=== PATIENT | female | born 1990 | race Caucasian/White ===

== ENCOUNTER → 2016-08-21 | Outpatient (CLI) | payer OTHER ==
[~2016-08-21] MED LIST: ABL/15 PO; ATR10 PO; ATR25 PO; CETI10TA10 PO; CIPR-255 PO; CLON1TAB3 PO; DIPH25CA94 PO; DOXE100C4 PO; DOXY100C2 PO; ETON1IMP2; FLUT50SP45; HYDR12.56 PO; HYDR5SYP11 PO; IMT50 PO; IPRA1AER2 INH; LEVOIUD IU; LTRSCR45 TOP; MELO7.5T5 PO; MOME200A INH; ONDA4TAB9 PO; ONDA8TAB6 PO; PANT40TA2 PO; PRED20TA2 PO; RIZA10TA18 PO; SALI0.658 NAE; SERT-234 PO; SERT1TAB88 PO; SNG10 PO; TPM/50 PO; TRMCR130WC; VNTHFA/IN INH; [UNRECOGNIZED DRUG - CODE] PO; [UNRECOGNIZED DRUG - CODE] TOP
== END | disposition home or self-care (01) ==
LOC: C.LABMFLN 14:41
PROVIDERS: ATTEND Physician Assistant
DX: R10.9 Unspecified abdominal pain (principal)

== ENCOUNTER → 2016-12-22 | Outpatient (CLI) | payer OTHER ==
[~2016-12-22] MED LIST changes: -ABL/15 PO; -ATR25 PO; -DIPH25CA94 PO; -DOXE100C4 PO; -DOXY100C2 PO; -ETON1IMP2; -FLUT50SP45; -HYDR12.56 PO; -HYDR5SYP11 PO; -LTRSCR45 TOP; -ONDA8TAB6 PO; -PANT40TA2 PO; -PRED20TA2 PO; +PRT/40 PO; -RIZA10TA18 PO; -SALI0.658 NAE; -SERT-234 PO; -TRMCR130WC; -VNTHFA/IN INH; -[UNRECOGNIZED DRUG - CODE] PO; -[UNRECOGNIZED DRUG - CODE] TOP
== END | disposition home or self-care (01) ==
LOC: C.LABMFLN 15:17
PROVIDERS: ATTEND Family Medicine
DX: J02.9 Acute pharyngitis, unspecified (principal)

== ENCOUNTER → 2017-03-05 | Outpatient (CLI) | payer OTHER ==
[~2017-03-05] MED LIST changes: +ABL/15 PO; +ATR25 PO; +DIPH25CA94 PO; +DOXE100C4 PO; +DOXY100C2 PO; +ETON1IMP2; +FLUT50SP45; +HYDR12.56 PO; +HYDR5SYP11 PO; +LTRSCR45 TOP; +ONDA8TAB6 PO; +PANT40TA2 PO; +PRED20TA2 PO; -PRT/40 PO; +RIZA10TA18 PO; +SALI0.658 NAE; +SERT-234 PO; +TRMCR130WC; +VNTHFA/IN INH; +[UNRECOGNIZED DRUG - CODE] PO; +[UNRECOGNIZED DRUG - CODE] TOP
== END | disposition home or self-care (01) ==
LOC: C.LABSPEC 17:51
PROVIDERS: ATTEND Physician Assistant
DX: J02.9 Acute pharyngitis, unspecified (principal)

== ENCOUNTER 2017-03-09 17:42 | Emergency (ER) | payer OTHER ==
[~2017-03-09] VITALS: Ht 167.6 cm; Wt 118.9 kg
[~2017-03-09 17:42] MED LIST changes: -ABL/15 PO; -ATR25 PO; -DIPH25CA94 PO; -DOXE100C4 PO; -DOXY100C2 PO; -ETON1IMP2; -FLUT50SP45; -HYDR12.56 PO; -HYDR5SYP11 PO; -LTRSCR45 TOP; -ONDA8TAB6 PO; -PRED20TA2 PO; -RIZA10TA18 PO; -SALI0.658 NAE; -SERT-234 PO; -TRMCR130WC; -VNTHFA/IN INH; -[UNRECOGNIZED DRUG - CODE] PO; -[UNRECOGNIZED DRUG - CODE] TOP
[2017-03-09 17:53] VITALS: TEMP 36.9; Ht 167.6 cm; Wt 118.9 kg
[2017-03-09] MEDS ORDERED: KETOROLAC TROMETHAMINE 30 MG/ML VIAL IV STA (18:12)
[2017-03-09] MEDS ORDERED: METHYLPREDNISOLONE 125 MG VIAL IV STA (18:12)
[2017-03-09] MEDS ORDERED: SODIUM CHLORIDE 0.9% 1000ML 1,000 ML IV STA (18:12)
[2017-03-09] MEDS ORDERED: ALBUT/IPRATROP 3MG/0.5MG NEB 3 ML VIAL INH STA (18:12)
[2017-03-09] MEDS ORDERED: TRMCR130WC (19:06)
[2017-03-09] MEDS ORDERED: DOXE100C4 PO (19:06)
[2017-03-09] MEDS ORDERED: [UNRECOGNIZED DRUG - CODE] PO (19:06)
[2017-03-09] MEDS ORDERED: DIPH25CA94 PO (19:06)
[2017-03-09] MEDS ORDERED: [UNRECOGNIZED DRUG - CODE] TOP (19:06)
[2017-03-09] MEDS ORDERED: ETON1IMP2 (19:06)
[2017-03-09] MEDS ORDERED: ABL/15 PO (19:06)
[2017-03-09] MEDS ORDERED: FLUT50SP45 (19:06)
[2017-03-09] MEDS ORDERED: LTRSCR45 TOP (19:06)
[2017-03-09] MEDS ORDERED: VNTHFA/IN INH (19:06)
[2017-03-09] MEDS ORDERED: ONDA8TAB6 PO (19:06)
[2017-03-09] MEDS ORDERED: SALI0.658 NAE (19:06)
[2017-03-09] MEDS ORDERED: SERT-234 PO (19:06)
[2017-03-09] MEDS ORDERED: HYDR12.56 PO (19:06)
[2017-03-09] MEDS ORDERED: RIZA10TA18 PO (19:06)
[2017-03-09] MEDS ORDERED: ATR25 PO (19:06)
[2017-03-09 19:10] LABS: POINT OF CARE TROPONIN I < 0.030 ng/ml (0-0.045)
[2017-03-09 19:10] LABS: BASO % 0.3 %; BASO ABS # 0.04 K/uL (0-0.2); COMPLETE YES; EOS % 2.9 %; HEMATOCRIT 39.9 % (37-47); IG% 0.4 %; LYMPH % 29.4 %; LYMPH ABS # 3.81 K/uL (1.2-3.4); MEAN CELL VOLUME 85.6 fL (80-100); MEAN CORPUSCULAR HEMOGLOBIN 28.1 pg (25-34); MEAN CORPUSCULAR HGB CONC 32.8 g/dl (32-36); MEAN PLATELET VOLUME 11.4 fL (7.4-10.4); MONO % 4.9 %; NEUT % 62.1 %; PLATELET COUNT 283 K/uL (130-400); RED BLOOD COUNT 4.66 M/uL (4.2-5.4); WHITE BLOOD COUNT 12.94 K/uL (4.8-10.8)
[2017-03-09 19:16] LABS: URINE APPEARANCE CLEAR (CLEAR); URINE BILIRUBIN NEG (NEG); URINE COLOR YELLOW; URINE EPITHELIAL CELL AUTO >30 /lpf (0-5); URINE NITRITE NEG (NEG); URINE SPECIFIC GRAVITY 1.021 (1.000-1.030); UROBILINOGEN NEG (NEG)
[2017-03-09 19:28] LABS: BUN/CREATININE RATIO 9.9 (10-20); CALCIUM 9.2 mg/dl (8.5-10.1); CREATININE 0.92 mg/dl (0.60-1.20); POTASSIUM 3.4 mmol/L (3.5-5.1)
--- NOTE | 2017-03-09 19:28 | DIAGNOSTIC IMAGING REPORT ---
CHEST 2 VIEWS ROUTINE CLINICAL HISTORY: Respiratory distress. Dyspnea. COMPARISON STUDY: Chest radiograph June 25, 2014. FINDINGS: Lung volumes are normal. No pneumothorax or pleural effusion is identified. Cardiomediastinal silhouette is normal. Pulmonary vascularity is normal. The appearance of the chest is unchanged. IMPRESSION: No acute cardiopulmonary findings. Electronically signed by: Enrique Wilkerson M.D. 03/09/2017 7:27 PM Dictated Date/Time: 03/09/2017 7:26 PM
[2017-03-09 19:29] LABS: MANUAL MICROSCOPIC REQUIRED? NO; REVIEW REQ? NO
[2017-03-09] MEDS ORDERED: PRED20TA2 PO (19:56)
[2017-03-09] MEDS ORDERED: HYDR5SYP11 PO (19:56)
[2017-03-09] MEDS ORDERED: DOXY100C2 PO (19:56)
[2017-03-09 20:16] VITALS: BP 155/88; PULSE 94; O2SAT 100
--- NOTE | 2017-03-09 21:14 | EMERGENCY ROOM VISIT NOTE ---
ED Visit Note First contact with patient: 17:58 Chief Complaint: I'm having a bad cough and chest tightness. History of Present Illness: Ms. Rosas is a 26-year-old white female who ambulates into the ED accompanied by female friend complaining of a severe cough and chest tightness. Historically patient reports she has history of asthma and recurrent bronchitis. Patient read reports her current symptoms started approximately 8 days ago with nasal congestion, sore throat and mildly productive cough. She has had resolution of sore throat but her cough and nasal congestion has gotten significantly worse. She reports she was seen at her PCPs office approximately 4 days ago and was encouraged to use pseudoephedrine and Robitussin for her symptoms. She has been taking his medications as prescribed and does not feel any better. She reports 3 days ago she was seen at [facility] and was diagnosed with a cold. She does report a rapid strep screen was performed and was negative. Patient reports for the last 3 days she feels like she has been coughing constantly. Over the last 24-36 hours she has developed anterior chest tightness. Without cough she rates her discomfort 3/5 and with cough she rates her discomfort 7/10. Her pain is nonradiating. Her pain worsens slightly with palpation. She has been using her recommended medications without relief of her symptoms. Associated with her symptoms she reports she is still having nasal congestion and dripping in the back of her throat, intermittent chills, intermittent palpitations, intermittent wheezing and shortness of breath. She denies olvin fevers, sweats, skin eruptions, skin color changes, sinus pressure, hemoptysis, orthopnea, dependent edema, previous clots, claudication, cramping, recent surgery/inactivity/extended travel, tobacco and estrogen use abdominal pain, nausea, vomiting, posttussive vomiting, back pain. Review of Systems: As noted above in history of present illness. All body systems were reviewed and found to be negative as noted above. Past Medical History: As previously noted, hypertension, unspecified skin disorder, unspecified stomach disorder, anemia, anxiety, depression, status post wisdom teeth extraction, D&C. Current Medications: Medications Dose Route/Sig Max Daily Dose Days Date Category Dose Instructions Aristocort 0.1% (Triamcinolone Acet) 90 Appln/30 Gm Cr 03/09/17 Reported Maxalt (Rizatriptan Benzoate) 10 Mg Tab 10 Mg PO DAILY PRN 03/09/17 Reported Zofran (Ondansetron HCl) 8 Mg Tab 8 Mg PO Q8 PRN 03/09/17 Reported Nexplanon (Etonogestrel) 68 Mg Imp 03/09/17 Reported Hydroxyzine HCl 25 Mg Tab 25 Mg PO BID 03/09/17 Reported Hctz (Hydrochlorothiazide) 12.5 Mg Cap 12.5 Mg PO DAILY 03/09/17 Reported Zoloft (Sertraline HCl) 100 Mg Tab 150 Mg PO DAILY 03/09/17 Reported Allergy Nasal [place] 24 Ho (Fluticasone Propionate (Nasal)) 50 Mcg/Act Spr 2 Sprays NA BID 03/09/17 Reported Slow Release Iron (Ferrous Sulfate Dried) 160 Mg Tab 160 Mg PO DAILY 03/09/17 Reported Doxepin (Doxepin Hcl) 100 Mg Cap 100 Mg PO DAILY 03/09/17 Reported Aler-Cap (Diphenhydramine Hcl) 25 Mg Cap 25 Mg PO TID 03/09/17 Reported Clotrimazole/Betameth Crm 45 Gm (Betamethasone/Clotrimazole) 135 Appln/45 Gm Cr 1 Appln TOP BID 03/09/17 Reported Clindamycin Phosphate (Clindamycin Phos) 90 Appln/30 Gm Gel 1 Appln TOP DAILY 03/09/17 Reported [place] Nasal Drops (Saline) 0.65 % [place] 1 [place] EDGARD QID 03/09/17 Reported Ventolin Hfa (Albuterol) 200 Puffs/58043 Mcg Aers 2-4 Puffs INH Q6H PRN 03/09/17 Reported Abilify (Aripiprazole) 15 Mg Tab 15 Mg PO DAILY 03/09/17 Reported Dulera 200/5 Mcg (Mometasone Furoate-Formoterol) 1 Aer Aer 2 Puffs INH BID 06/25/14 Reported Montelukast Sodium (Montelukast Sod) 10 Mg Tab 10 Mg PO HS 06/25/14 Reported Combivent Respimat (Ipratropium-Albuterol) 1 Aer Aer 1 Puff INH Q4H PRN 06/25/14 Reported Pantoprazole Sodium (Pantoprazole) 40 Mg Tab 40 Mg PO BID 06/25/14 Reported TAKE THIS MEDICATION TWICE DAILY 30 MINUTES BEFORE BREAKFAST AND EVENING MEAL. Zyrtec (Cetirizine Hcl) 10 Mg Tab 10 Mg PO HS 06/25/14 Reported Allergies to Medications: Zithromax, Dilaudid, Azelastine. Social History: Patient is currently employed; she feels safe in her home environment; she denies tobacco use; she admits to alcohol use. Physical Examination: Vital Signs: Date Time Temp Pulse Resp B/P (MAP) Pulse Ox O2 Delivery O2 Flow Rate FiO2 03/09/17 20:16 94 20 155/88 100 03/09/17 18:56 99 03/09/17 17:53 36.9 102 20 164/11 100 Room Air GENERAL: 26-year-old female in mild distress due to pain, nontoxic-appearing, afebrile and hemodynamically stable. NEUROLOGICAL: Awake, alert and oriented to person, place and time. Answering questions appropriately and following commands. Normal gait. Good hand eye coordination. No focal motor sensory deficits. SKIN: Warm, dry and pink. No soft tissue eruptions or trauma noted. HEENT: Atraumatic and normocephalic. No erythema or tenderness over the frontal or maxillary sinuses. PERRLA. Sclera white and conjunctiva pink. No drainage from naris, but audible congestion is heard. Oral cavity moist and pink. Uvula is midline and no abscesses are noted. Pharynx is mildly erythematous but not edematous. No tonsillar hypertrophy or exudates. Speech normal. No lymphadenopathy. Trachea midline. No jugular venous distention. BACK: No tenderness over the bony spine. No CVA tenderness. THORAX: Lungs sounds are clear to auscultation but decreased in all maldonado with poor air movement. Symmetrical chest wall. No wheezing, rales or rhonchi. Mild tenderness over the anterior chest wall without bony deformity, bony crepitus, or subcutaneous air. HEART: Tachycardic rate and rhythm. No gallops, rubs or murmurs are appreciated. ABDOMEN: Soft and nontender. Positive bowel sounds in all quadrants. No guarding, rigidity or organomegaly. EXTREMITIES: Moves all extremities well on command and with purpose. All distal neurovascular statuses are intact and equal bilaterally. No calf tenderness or cords. ED Course: Patient is assessed as noted above. Patient's medication list was reviewed. Laboratory Testing: Test 03/09/17 18:24 03/09/17 18:40 03/09/17 18:50 Range/Units Urine Color YELLOW Urine Appearance CLEAR CLEAR Urine pH 6.0 4.5-7.5 Urine Specific [place] 1.021 1.000-1.030 Urine Protein NEG NEG Urine Glucose (UA) NEG NEG Urine Ketones NEG NEG Urine Occult Blood TRACE NEG Urine Nitrite NEG NEG Urine Bilirubin NEG NEG Urine Urobilinogen NEG NEG Urine Leukocyte Esterase SMALL NEG Urine WBC (Auto) 10-30 0-5 /hpf Urine RBC (Auto) 0-4 0-4 /hpf Urine Hyaline Casts (Auto) 1-5 0-5 /lpf Urine Epithelial Cells (Auto) >30 0-5 /lpf Urine Bacteria (Auto) 2+ NEG White Blood Count 12.94 4.8-10.8 K/uL Red Blood Count 4.66 4.2-5.4 M/uL Hemoglobin 13.1 12.0-16.0 g/dL Hematocrit 39.9 37-47 % Mean Corpuscular Volume 85.6 80-100 fL Mean Corpuscular Hemoglobin 28.1 25-34 pg Mean Corpuscular Hemoglobin Concent 32.8 32-36 g/dl Platelet Count 283 130-400 K/uL Mean Platelet Volume 11.4 7.4-10.4 fL Neutrophils (%) (Auto) 62.1 % Lymphocytes (%) (Auto) 29.4 % Monocytes (%) (Auto) 4.9 % Eosinophils (%) (Auto) 2.9 % Basophils (%) (Auto) 0.3 % Neutrophils # (Auto) 8.02 1.4-6.5 K/uL Lymphocytes # (Auto) 3.81 1.2-3.4 K/uL Monocytes # (Auto) 0.64 0.11-0.59 K/uL Eosinophils # (Auto) 0.38 0-0.5 K/uL Basophils # (Auto) 0.04 0-0.2 K/uL RDW Standard Deviation 42.3 36.4-46.3 fL RDW Coefficient of Variation 13.7 11.5-14.5 % Immature Granulocyte % (Auto) 0.4 % Immature Granulocyte # (Auto) 0.05 0.00-0.02 K/uL Sodium Level 139 136-145 mmol/L Potassium Level 3.4 3.5-5.1 mmol/L Chloride Level 103 98-107 mmol/L Carbon Dioxide Level 27 21-32 mmol/L Anion Gap 9.0 3-11 mmol/L Blood Urea Nitrogen 9 7-18 mg/dl Creatinine 0.92 0.60-1.20 mg/dl Est Creatinine Clear Calc Drug Dose 121.6 ml/min Estimated GFR () 99.6 Estimated GFR (Non- 85.9 BUN/Creatinine Ratio 9.9 10-20 Random Glucose 81 70-99 mg/dl Calcium Level 9.2 8.5-10.1 mg/dl Bedside D-Dimer 176 0-450 ng/mlFEU Bedside Troponin I < 0.030 0-0.045 ng/ml EKG: Was read by myself and shows normal sinus rhythm with sinus arrhythmia. Ventricular rate 82 bpm. Normal axis, intervals and complexes. No acute ST changes indicating ischemia, injury or infarction. This was compared to a previous from January 2014 and no acute changes were noted. Chest X-Rays: Were read by myself and shows no acute infiltrates, effusions or pneumothorax. Normal heart silhouette and bony anatomy. Patient was hydrated with normal saline and she received 30 mg of Toradol IV for pain, 125 mg of Solu-Medrol IV for inflammation. She was given an albuterol /Atrovent nebulizer breathing treatment. Reassessment after her breathing treatment she had improved air movement in all maldonado and continued to have no wheezing, rales or rhonchi. Patient was educated about today's findings and instructed on her treatment plan ; she verbalized understanding and agreement with this plan. Clinical Impression: Acute bronchitis. Decision-Making: Initially my differential diagnosis I considered bronchitis, pneumonia, pleurisy, pneumothorax, pulmonary embolism, acute coronary syndrome and other causes. Disposition: Patient discharged home in stable condition accompanied by her grandmother; prior to departure she was reassessed and subjectively reported she was feeling much better. Plan: Patient was encouraged use 2 puffs of her albuterol inhaler every 4 hours for the next 5 days and as needed for shortness of breath/wheezing or severe coughing episode. Patient was prescribed 60 mg of prednisone once a day for the next 4 days. Because the patient's respiratory history and her white count cell elevation I did place her on 100 mg of doxycycline twice a day for 7 days for antibiotic coverage. Patient was prescribed Hycodan cough syrup 5 mL every 6 hours as needed for severe cough; she was educated on appropriate narcotic use and her name was checked in the state database and no red flags were noted. Patient was encouraged to follow-up with family physician for recheck in 4-5 days if no better. Patient was encouraged return ED for worsening cough, worsening shortness of breath/wheezing, fevers, coughing up blood or any new/concerning symptoms.
== END 2017-03-09 20:17 | disposition home or self-care (01) ==
LOC: C.EDB 17:43 → C.EDD 20:17
DX: J20.9 Acute bronchitis, unspecified (principal); I10 Essential (primary) hypertension; F41.9 Anxiety disorder, unspecified; F32.9 Major depressive disorder, single episode, unspecified; D64.9 Anemia, unspecified; Z88.8 Allergy status to other drugs, medicaments and biological substances

== ENCOUNTER 2017-05-03 07:18 | Emergency (ER) | payer OTHER ==
[~2017-05-03] VITALS: Ht 165.1 cm; Wt 121.7 kg
[~2017-05-03 07:18] MED LIST changes: +ABL/15 PO; -ATR10 PO; +ATR25 PO; -CIPR-255 PO; -CLON1TAB3 PO; +DIPH25CA94 PO; +DOXE100C4 PO; +DOXY100C2 PO; +ETON1IMP2; +FLUT50SP45; +HYDR12.56 PO; -IMT50 PO; -LEVOIUD IU; +LTRSCR45 TOP; -MELO7.5T5 PO; -ONDA4TAB9 PO; +ONDA8TAB6 PO; +PRED20TA2 PO; +RIZA10TA18 PO; +SALI0.658 NAE; +SERT-234 PO; -SERT1TAB88 PO; -TPM/50 PO; +TRMCR130WC; +VNTHFA/IN INH; +[UNRECOGNIZED DRUG - CODE] PO; +[UNRECOGNIZED DRUG - CODE] TOP
[2017-05-03 07:24] VITALS: TEMP 36.3; Ht 165.1 cm; Wt 121.7 kg
[2017-05-03 07:40] VITALS: O2SAT 100
[2017-05-03] MEDS ORDERED: LISI-787 PO (07:42)
[2017-05-03] MEDS ORDERED: AMOX500C3 PO (07:46)
[2017-05-03] MEDS ORDERED: BENZ100C84 PO (07:46)
[2017-05-03] MEDS ORDERED: ACETAMINOPHEN 500 MG TAB PO STA (07:47)
[2017-05-03] MEDS ORDERED: ALBUTEROL 0.5% NEB SOLN 2.5 MG/0.5 ML VIAL INH STA ×2 (07:47→09:16)
[2017-05-03] MEDS ORDERED: OSELTAMIVIR PHOSPHATE 75 MG CAP PO STA (07:47)
--- NOTE | 2017-05-03 07:55 | EMERGENCY ROOM VISIT NOTE ---
History Report prepared by Celestine: Elia Rizvi Under the Supervision of: Dr. Dev Walker M.D. First contact with patient: 07:30 Chief Complaint: COUGH Stated Complaint: BAD COUGH,TIGHTNESS IN CHEST,AND PAIN OVER RIBS Nursing Triage Summary: triage note pt reports cough with increasing tightness in upper chest, produces yellow green sputum, fever before bed time 100.0 seen by family doctor juan on sun. percribe amoxicillin and benzotate? for cough denies chest xray. History of Present Illness The patient is a 26 year old female who presents to the Emergency Room with complaints of a persistent cough that she has been experiencing for the past week. The patient also complains of "tightness" in her ribs associated to. and worsened by the cough. She visited with her PCP prior to this visit and was given Tessalon Pearls and Amoxicillin. She does take inhalers at home. 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 A total of 10 systems reviewed and were otherwise negative. Past Medical & Surgical Medical Problems: (1) Anxiety (2) Asthma (3) Depression Family History Cancer Diabetes mellitus Heart disease Hypertension Lung disease Seizures Social History Smoking Status: Former Smoker Marital Status: single Housing Status: lives with family Occupation Status: employed Current/Historical Medications Scheduled Amoxicillin (Amoxil), 500 MG PO TID Aripiprazole (Abilify), 15 MG PO DAILY Benzonatate (Tessalon Perles), 100-200 MG PO TID Cetirizine Hcl (Zyrtec), 10 MG PO HS Clindamycin Phos (Clindamycin Phosphate), 1 APPLN TOP DAILY Diphenhydramine Hcl (Aler-Cap), 25 MG PO HS Doxepin Hcl (Doxepin), 100 MG PO DAILY Ferrous Sulfate Dried (Slow Release Iron), 160 MG PO DAILY Fluticasone Propionate (Nasal) (Allergy Nasal [place] 24 Ho), 2 SPRAYS NA BID Hydroxyzine HCl (Hydroxyzine HCl), 25 MG PO BID Lisinopril/Hctz (Zestoretic 20MG/12.5MG), 1 TAB PO DAILY Mometasone Furoate-Formoterol (Dulera 200/5 Mcg), 2 PUFFS INH BID Montelukast Sod (Montelukast Sodium), 10 MG PO HS Oseltamivir Phosphate (Tamiflu), 75 MG PO BID Pantoprazole (Pantoprazole Sodium), 40 MG PO BID Saline ([place] Nasal Drops), 1 SPRAY EDGARD QID Sertraline (Zoloft), 150 MG PO DAILY Scheduled PRN Albuterol Hfa (Ventolin Hfa), 2-4 PUFFS INH Q6H PRN for Wheezing Ipratropium-Albuterol (Combivent Respimat), 1 PUFF INH Q4H PRN for Cough,Whz,SOB ,Prior Exercise Ondansetron Hcl (Zofran), 8 MG PO Q8 PRN for Nausea Rizatriptan Benzoate (Maxalt), 10 MG PO DAILY PRN for . Miscellaneous Medications Etonogestrel (Nexplanon) Allergies Coded Allergies: Hydromorphone (Verified Allergy, Intermediate, itching, 05/03/17) Azelastine (Unverified Allergy, Unknown, ., 05/03/17) Azithromycin (Unverified Allergy, Unknown, ., 05/03/17) Physical Exam Vital Signs Date Time Temp Pulse Resp B/P (MAP) Pulse Ox O2 Delivery O2 Flow Rate FiO2 05/03/17 09:30 97 20 115/77 100 Room Air 05/03/17 09:00 95 20 134/70 99 05/03/17 08:30 86 20 138/80 100 Room Air 05/03/17 08:15 105 05/03/17 08:10 97 Room Air 05/03/17 08:07 92 12 156/71 97 Room Air 05/03/17 07:40 100 Room Air 05/03/17 07:28 98 Room Air 05/03/17 07:24 36.3 109 20 136/84 97 Room Air Physical Exam GENERAL: Patient is a healthy-appearing well-nourished HEAD: Normocephalic atraumatic EYES: Ocular movements intact pupils equal and react to light OROPHARYNX mucous membranes are moist no exudates present no erythema or edema present NECK: Supple no nuchal rigidity CHEST: Good equal expansion. Bilateral wheezing LUNGS: Clear and equal to auscultation CARDIAC: Normal S1 and S2 ABDOMEN: Soft nontender no guarding BACK: No CVA tenderness EXTREMITIES: No pain upon palpation normal muscle strength in all groups no clubbing cyanosis or edema NEURO: Patient is following commands and answering questions appropriately. Alert and oriented x3 Cranial Nerves 2-12 grossly intact Medical Decision & Procedures ER Provider Diagnostic Interpretation: SINGLE VIEW CHEST CLINICAL HISTORY: Dyspnea. FINDINGS: An AP, portable, upright chest radiograph is compared to study dated 03/09/2017. The examination is degraded by portable technique and patient rotation. The cardiomediastinal silhouette is unremarkable. The lungs and pleural spaces are clear. No pneumothorax is seen. The bony thorax is grossly intact. IMPRESSION: No active disease in the chest. Electronically signed by: Raffaele Burnham M.D. 05/03/2017 8:29 AM Dictated Date/Time: 05/03/2017 8:29 AM Laboratory Results 05/03/17 08:00 Red Blood Count 4.74, Mean Corpuscular Volume 85.7, Mean Corpuscular Hemoglobin 27.6, Mean Corpuscular Hemoglobin Concent 32.3, Mean Platelet Volume 11.3, Neutrophils (%) (Auto) 59.2, Lymphocytes (%) (Auto) 29.4, Monocytes (%) (Auto) 7.4, Eosinophils (%) (Auto) 3.4, Basophils (%) (Auto) 0.4, Neutrophils # (Auto) 5.80, Lymphocytes # (Auto) 2.88, Monocytes # (Auto) 0.73, Eosinophils # (Auto) 0.33, Basophils # (Auto) 0.04 05/03/17 08:00 Test 05/03/17 08:00 White Blood Count 9.80 K/uL (4.8-10.8) Red Blood Count 4.74 M/uL (4.2-5.4) Hemoglobin 13.1 g/dL (12.0-16.0) Hematocrit 40.6 % (37-47) Mean Corpuscular Volume 85.7 fL (80-100) Mean Corpuscular Hemoglobin 27.6 pg (25-34) Mean Corpuscular Hemoglobin Concent 32.3 g/dl (32-36) Platelet Count 276 K/uL (130-400) Mean Platelet Volume 11.3 fL (7.4-10.4) Neutrophils (%) (Auto) 59.2 % Lymphocytes (%) (Auto) 29.4 % Monocytes (%) (Auto) 7.4 % Eosinophils (%) (Auto) 3.4 % Basophils (%) (Auto) 0.4 % Neutrophils # (Auto) 5.80 K/uL (1.4-6.5) Lymphocytes # (Auto) 2.88 K/uL (1.2-3.4) Monocytes # (Auto) 0.73 K/uL (0.11-0.59) Eosinophils # (Auto) 0.33 K/uL (0-0.5) Basophils # (Auto) 0.04 K/uL (0-0.2) RDW Standard Deviation 44.5 fL (36.4-46.3) RDW Coefficient of Variation 14.2 % (11.5-14.5) Immature Granulocyte % (Auto) 0.2 % Immature Granulocyte # (Auto) 0.02 K/uL (0.00-0.02) Anion Gap 8.0 mmol/L (3-11) Est Creatinine Clear Calc Drug Dose 144.9 ml/min Estimated GFR () 123.5 Estimated GFR (Non- 106.6 BUN/Creatinine Ratio 14.3 (10-20) Calcium Level 9.1 mg/dl (8.5-10.1) Total Bilirubin 0.8 mg/dl (0.2-1) Aspartate Amino Transf (AST/SGOT) 15 U/L (15-37) Alanine Aminotransferase (ALT/SGPT) 30 U/L (12-78) Alkaline Phosphatase 93 U/L (45-117) Total Protein 7.5 gm/dl (6.4-8.2) Albumin 3.7 gm/dl (3.4-5.0) Globulin 3.8 gm/dl (2.5-4.0) Albumin/Globulin Ratio 1.0 (0.9-2) Influenza Type A Antigen Neg for Influ A (NEG) Influenza Type B Antigen Neg for Influ B (NEG) Labs reviewed by ED physician. Medications Administered Medications (Trade) Dose Ordered Sig/Dixie Route Start Time Stop Time Status Last Admin Dose Admin Albuterol Sulfate (Ventolin 0.5% 2.5MG/0.5ML Neb) 2.5 mg NOW STAT INH 05/03/17 07:47 05/03/17 07:49 DC 05/03/17 08:10 2.5 MG Oseltamivir Phosphate (Tamiflu Cap) 75 mg NOW STAT PO 05/03/17 07:47 05/03/17 07:49 DC 05/03/17 08:10 75 MG Acetaminophen (Tylenol Tab) 1,000 mg NOW STAT PO 05/03/17 07:47 05/03/17 07:49 DC 05/03/17 08:10 1,000 MG Sodium Chloride ([place] Nasal [place]) 2 sprays NOW STAT NA 05/03/17 09:16 05/03/17 09:17 DC 05/03/17 09:24 2 SPRAYS Ketorolac Tromethamine (Toradol Inj) 30 mg NOW STAT IV 05/03/17 09:16 05/03/17 09:18 DC 05/03/17 09:24 30 MG Albuterol Sulfate (Ventolin 0.5% 2.5MG/0.5ML Neb) 2.5 mg NOW STAT INH 05/03/17 09:16 05/03/17 09:18 DC 05/03/17 09:24 2.5 MG ED Course 0742: Past medical records reviewed. The patient was evaluated in room A10. A complete history and physical examination was performed. 0747: Ordered Acetaminophen 1000 mg PO, Oseltamivir 75 mg PO, Albuterol Sulfate 2.5 mg INH. Medical Decision Differential diagnosis: Etiologies such as infections, bronchitis, reactive airway disease, pneumonia, pneumothorax, COPD, CHF, cardiac ischemia, pulmonary embolism, musculoskeletal, gastrointestinal, as well as others were entertained. This is a 26 her old female who presents emergency department complaining of bronchitis-like symptoms. The patient has had bronchitis in the past. She has a normal white blood cell count normal renal profile normal liver profile. The patient is already taking amoxicillin. I do suspect placed on the number of cases of the patient most likely has flu even though her swab is negative. I do feel that the patient as well as to be discharged home for follow-up with primary care physician. Both patient and grandmother in agreement with the treatment plan. Impression Primary Impression: Upper respiratory infection Scribe Attestation The scribe's documentation has been prepared under my direction and personally reviewed by me in its entirety. I confirm that the note above accurately reflects all work, treatment, procedures, and medical decision making performed by me. Departure Information Dispostion Home / Self-Care Prescriptions Oseltamivir Phosphate (Tamiflu) 75 Mg Cap 75 MG PO BID, #10 CAP Prov: Dev Walker MD 05/03/17 Referrals Emperatriz Adame M.D. (PCP) Patient Instructions My [facility] Problem Qualifiers Primary Impression: Upper respiratory infection URI type: unspecified URI Qualified Codes: J06.9 - Acute upper respiratory infection, unspecified
[2017-05-03 08:20] LABS: BASO % 0.4 %; BASO ABS # 0.04 K/uL (0-0.2); EOS % 3.4 %; EOS ABS # 0.33 K/uL (0-0.5); HEMATOCRIT 40.6 % (37-47); HEMOGLOBIN 13.1 g/dL (12.0-16.0); IG# 0.02 K/uL (0.00-0.02); LYMPH % 29.4 %; LYMPH ABS # 2.88 K/uL (1.2-3.4); MEAN CELL VOLUME 85.7 fL (80-100); MEAN CORPUSCULAR HEMOGLOBIN 27.6 pg (25-34); MEAN CORPUSCULAR HGB CONC 32.3 g/dl (32-36); MEAN PLATELET VOLUME 11.3 fL (7.4-10.4); MONO % 7.4 %; MONO ABS # 0.73 K/uL (0.11-0.59); NEUT % 59.2 %; PLATELET COUNT 276 K/uL (130-400); RED CELL DISTRIBUTION WIDTH CV 14.2 % (11.5-14.5); RED CELL DISTRIBUTION WIDTH SD 44.5 fL (36.4-46.3)
--- NOTE | 2017-05-03 08:31 | DIAGNOSTIC IMAGING REPORT ---
SINGLE VIEW CHEST CLINICAL HISTORY: Dyspnea. FINDINGS: An AP, portable, upright chest radiograph is compared to study dated 03/09/2017. The examination is degraded by portable technique and patient rotation. The cardiomediastinal silhouette is unremarkable. The lungs and pleural spaces are clear. No pneumothorax is seen. The bony thorax is grossly intact. IMPRESSION: No active disease in the chest. Electronically signed by: Raffaele Burnham M.D. 05/03/2017 8:29 AM Dictated Date/Time: 05/03/2017 8:29 AM
[2017-05-03 08:40] LABS: ALBUMIN 3.7 gm/dl (3.4-5.0); CALCIUM 9.1 mg/dl (8.5-10.1); CREATININE 0.77 mg/dl (0.60-1.20); POTASSIUM 3.6 mmol/L (3.5-5.1)
[2017-05-03 08:42] LABS: INFLUENZA B ANTIGEN Neg for Influ B (NEG)
[2017-05-03 08:43] LABS: TOTAL PROTEIN 7.5 gm/dl (6.4-8.2)
[2017-05-03] MEDS ORDERED: KETOROLAC TROMETHAMINE 30 MG/ML VIAL IV STA (09:16)
[2017-05-03] MEDS ORDERED: SODIUM CHLORIDE 0.65% NA SOLN 45 ML (OCEAN) STA (09:16)
[2017-05-03] MEDS ORDERED: OSEL75CA23 PO (09:19)
[2017-05-03 09:30] VITALS: BP 115/77; PULSE 97; O2SAT 100
== END 2017-05-03 10:05 | disposition home or self-care (01) ==
LOC: C.EDB 07:20 → C.EDA 10:05
DX: J06.9 Acute upper respiratory infection, unspecified (principal); J45.909 Unspecified asthma, uncomplicated; Z87.891 Personal history of nicotine dependence; Z83.3 Family history of diabetes mellitus; Z82.49 Family history of ischemic heart disease and other diseases of the circulatory system; Z83.6 Family history of other diseases of the respiratory system; Z82.0 Family history of epilepsy and other diseases of the nervous system

== ENCOUNTER → 2017-05-21 | Outpatient (CLI) | payer OTHER ==
[~2017-05-21] MED LIST changes: +AMOX500C3 PO; +BENZ100C84 PO; -DOXY100C2 PO; -HYDR12.56 PO; +LISI-787 PO; -LTRSCR45 TOP; +OSEL75CA23 PO; -PRED20TA2 PO; -TRMCR130WC
== END | disposition home or self-care (01) ==
LOC: C.LABMFLN 12:13
PROVIDERS: ATTEND Family Medicine
DX: R35.0 Frequency of micturition (principal); R10.9 Unspecified abdominal pain

== ENCOUNTER 2017-05-26 15:47 | Emergency (ER) | payer OTHER ==
[~2017-05-26] VITALS: Ht 165.1 cm; Wt 123.8 kg
[~2017-05-26 15:47] MED LIST changes: -ABL/15 PO; -ATR25 PO; -CETI10TA10 PO; -DIPH25CA94 PO; -DOXE100C4 PO; -ETON1IMP2; -FLUT50SP45; -IPRA1AER2 INH; -MOME200A INH; -ONDA8TAB6 PO; -PANT40TA2 PO; -RIZA10TA18 PO; -SALI0.658 NAE; -SERT-234 PO; -SNG10 PO; -VNTHFA/IN INH; -[UNRECOGNIZED DRUG - CODE] PO; -[UNRECOGNIZED DRUG - CODE] TOP
[2017-05-26 15:58] VITALS: TEMP 36.7; Ht 165.1 cm; Wt 123.8 kg
[2017-05-26] MEDS ORDERED: CETI10TA10 PO (16:24)
[2017-05-26] MEDS ORDERED: IPRA1AER2 INH (16:24)
[2017-05-26] MEDS ORDERED: PANT40TA2 PO (16:24)
[2017-05-26] MEDS ORDERED: ONDANSETRON INJ 2 MG/ML 2 ML VIAL IV STA (16:26)
[2017-05-26] MEDS ORDERED: DEXAMETHASONE SOD INJ 4 MG/ML VIAL IV STA (16:26)
[2017-05-26] MEDS ORDERED: SODIUM CHLORIDE 0.9% 1000ML 1,000 ML IV STA (16:26)
[2017-05-26] MEDS ORDERED: SNG10 PO (16:28)
[2017-05-26] MEDS ORDERED: MOME200A INH (16:35)
[2017-05-26] MEDS ORDERED: VENL75CA PO (16:52)
[2017-05-26 16:54] LABS: BASO % 0.5 %; BASO ABS # 0.04 K/uL (0-0.2); EOS % 2.2 %; EOS ABS # 0.19 K/uL (0-0.5); HEMATOCRIT 40.9 % (37-47); HEMOGLOBIN 13.4 g/dL (12.0-16.0); IG# 0.02 K/uL (0.00-0.02); LYMPH % 33.6 %; LYMPH ABS # 2.84 K/uL (1.2-3.4); MEAN CELL VOLUME 86.8 fL (80-100); MEAN CORPUSCULAR HEMOGLOBIN 28.5 pg (25-34); MEAN CORPUSCULAR HGB CONC 32.8 g/dl (32-36); MONO % 5.8 %; MONO ABS # 0.49 K/uL (0.11-0.59); NEUT % 57.7 %; NEUT ABS # 4.88 K/uL (1.4-6.5); PLATELET COUNT 301 K/uL (130-400); RED CELL DISTRIBUTION WIDTH CV 14.6 % (11.5-14.5); RED CELL DISTRIBUTION WIDTH SD 46.2 fL (36.4-46.3); WHITE BLOOD COUNT 8.46 K/uL (4.8-10.8)
[2017-05-26 17:12] LABS: ALBUMIN 3.8 gm/dl (3.4-5.0); CALCIUM 9.1 mg/dl (8.5-10.1); CREATININE 0.79 mg/dl (0.60-1.20)
[2017-05-26 17:15] LABS: TOTAL PROTEIN 7.8 gm/dl (6.4-8.2)
--- NOTE | 2017-05-26 17:29 | DIAGNOSTIC IMAGING REPORT ---
CHEST 2 VIEWS ROUTINE CLINICAL HISTORY: COUGH X ONE MONTH COMPARISON STUDY: Chest radiograph May 03, 2017. FINDINGS: Lung volumes are within normal limits. Lungs are clear. No pneumothorax or pleural effusion is noted. Cardiac size is normal. Mediastinal contours are normal. There is no evidence of pulmonary edema. IMPRESSION: No acute cardiopulmonary findings. Electronically signed by: Enrique Wilkerson M.D. 05/26/2017 5:28 PM Dictated Date/Time: 05/26/2017 5:27 PM
[2017-05-26] MEDS ORDERED: ALBINS/ INH (18:00)
[2017-05-26] MEDS ORDERED: METH4PAK PO (18:00)
[2017-05-26] MEDS ORDERED: VNTHFA/IN INH ×2 (18:00→19:06)
[2017-05-26] MEDS ORDERED: HYDR5SYP11 PO (18:03)
--- NOTE | 2017-05-26 18:04 | EMERGENCY ROOM VISIT NOTE ---
History First contact with patient: 16:03 Chief Complaint: COUGH Stated Complaint: COUGH,PRESSUE IN HEAD,NAUSEA,VOMTING History of Present Illness Patient is a 26-year-old white female with past medical history significant for asthma, seasonal and environmental allergies, hypertension, and GERD, depression and anxiety, who presents the emergency department for evaluation of cough 1 month with associated head pressure, nausea and vomiting. Patient reports that she has been sick for a month. She was seen by her primary care provider for upper respiratory symptoms in early April. She was diagnosed with bronchitis and sinusitis and placed on amoxicillin and Tessalon Perles. She subsequently presented here to the emergency department on 05/03. Workup was unremarkable. She tested negative for influenza, but was treated clinically with Tamiflu. She has been using her Combivent and Dulera inhalers as prescribed. She states that she felt a little bit better for about a week or so, then her cough returned. She reports a cough that is productive of clear /whitish mucus. She reports some pressure in her chest and tightness in her chest, but denies any pain, shortness of breath or wheezing. She also states that one week ago she developed urinary tract symptoms and low back pain. She had associated nausea and vomiting. She was seen at her primary care doctor's office, a urine dip was clear, urine culture was negative and she did have a CT scan which did not show any evidence for a stone. She also complains of a band like pressure in her head that started yesterday. She has a history of migraines but states that this does not feel like a migraine. It is not as severe and she only rates her discomfort a 3/10. She tried taking Zofran for her nausea and vomiting, but it did not help. She denies any diarrhea. She does not have any abdominal pain. She reports that she did not take any of her medications today because of her vomiting. She has not had any fevers, but she feels cold all of the time. Review of Systems Review of systems as per HPI. All other systems reviewed were negative. 10 systems reviewed. Past Medical/Surgical History Medical Problems: (1) Acute bronchitis (2) Acute sinusitis (3) Anxiety (4) Asthma (5) Asthma exacerbation (6) Asthma exacerbation (7) Bladder infection (8) Depression (9) Environmental and seasonal allergies (10) GERD (gastroesophageal reflux disease) (11) Hypertension (12) Migraines (13) Morbid obesity with BMI of 45.0-49.9, adult (14) Nausea (15) Sinusitis (16) Sinusitis (17) Upper respiratory infection (18) UTI (urinary tract infection) (19) Vomiting Electronic medical records are reviewed and summarized as above/below. See Problem List. Family History Cancer Diabetes mellitus Heart disease Hypertension Lung disease Seizures Social History Smoking Status: Never Smoker Marital Status: single Housing Status: lives with family Occupation Status: employed, student Current/Historical Medications Scheduled Albuterol Sulf (Proventil 0.083% 2.5MG/3ML), 2.5 MG INH QID Aripiprazole (Abilify), 15 MG PO DAILY Cetirizine Hcl (Zyrtec), 10 MG PO HS Clindamycin Phos (Clindamycin Phosphate), 1 APPLN TOP DAILY Diphenhydramine Hcl (Aler-Cap), 25 MG PO HS Doxepin Hcl (Doxepin), 100 MG PO DAILY Ferrous Sulfate Dried (Slow Release Iron), 160 MG PO DAILY Fluticasone Propionate (Nasal) (Allergy Nasal [place] 24 Ho), 2 SPRAYS NA BID Hydroxyzine HCl (Hydroxyzine HCl), 25 MG PO BID Lisinopril/Hctz (Zestoretic 20MG/12.5MG), 1 TAB PO DAILY Methylprednisolone (Medrol Dosepak), 0 PO DAILY Mometasone Furoate-Formoterol (Dulera 200/5 Mcg), 2 PUFFS INH BID Montelukast Sod (Montelukast Sodium), 10 MG PO HS Pantoprazole (Pantoprazole Sodium), 40 MG PO BID Saline ([place] Nasal Drops), 1 SPRAY EDGARD QID Sertraline (Zoloft), 150 MG PO DAILY Scheduled PRN Albuterol Hfa (Ventolin Hfa), 2 PUFFS INH Q6H PRN for Wheezing Albuterol Hfa (Ventolin Hfa), 2 PUFFS INH Q4 PRN for SOB/Wheezing Benzonatate (Tessalon Perles), 100-200 MG PO TID PRN for Cough Hydrocodone W/ Homatropine (Hycodan 5/1.5MG 5 Ml), 10 ML PO Q4H PRN for Cough Ipratropium-Albuterol (Combivent Respimat), 1 PUFF INH Q4H PRN for Cough,Whz,SOB ,Prior Exercise Ondansetron Hcl (Zofran), 8 MG PO Q8 PRN for Nausea Rizatriptan Benzoate (Maxalt), 10 MG PO DAILY PRN for . Miscellaneous Medications Etonogestrel (Nexplanon) Physical Exam Vital Signs Date Time Temp Pulse Resp B/P (MAP) Pulse Ox O2 Delivery O2 Flow Rate FiO2 05/26/17 18:19 89 16 149/101 100 05/26/17 17:41 94 19 131/72 100 Room Air 05/26/17 16:55 83 05/26/17 16:53 100 Room Air 05/26/17 15:58 36.7 114 20 165/103 97 Room Air Physical Exam CONSTITUTIONAL: Patient is a morbidly obese 26-year-old white female who is awake and alert and in no acute distress. She is noted to be hypertensive in triage blood pressure 165/103, heart rate 114. No conversational dyspnea. Infrequent cough is noted. EYES: Pupils equal, round, reactive to light and accommodation. EOMs intact without nystagmus. Sclera are anicteric. ENT: Tympanic membranes intact, with normal landmarks. External canals are clear. Oral and nasopharynx are clear. Mucous membranes are moist, no lesions , tongue and gums appear normal. NECK: Supple without lymphadenopathy. No thyromegaly. No meningeal signs. Full active range of motion without discomfort. CARDIOVASCULAR: Regular rate and rhythm, with normal S1 and S2, no murmur or gallop or rub is heard. No carotid bruits auscultated. No JVD. Peripheral pulses easy to palpable. RESPIRATORY: Breath sounds equal and clear to auscultation without wheezes, rales, or rhonchi heard. Full and equal chest expansion without accessory muscle use or retractions. GI: Bowel sounds are present. Abdomen is soft, nontender, nondistended. No organomegaly. No pulsatile masses. No guarding or rebound. MUSCULOSKELETAL: Full range of motion of extremities x 4 with good strength. No cyanosis, edema, joint tenderness or swelling. No deformity. INTEGUMENTARY: No lesions or rash, normal skin turgor. NEUROLOGICAL: Alert, oriented, and cooperative. Cranial nerves, sensation and strength grossly intact. Pupils round, equal, and react to light, EOMs are full. LYMPH: No lymphadenopathy. Medical Decision & Procedures ER Provider Diagnostic Interpretation: CHEST 2 VIEWS ROUTINE CLINICAL HISTORY: COUGH X ONE MONTH COMPARISON STUDY: Chest radiograph May 03, 2017. FINDINGS: Lung volumes are within normal limits. Lungs are clear. No pneumothorax or pleural effusion is noted. Cardiac size is normal. Mediastinal contours are normal. There is no evidence of pulmonary edema. IMPRESSION: No acute cardiopulmonary findings. Laboratory Results 05/26/17 16:40 Red Blood Count 4.71, Mean Corpuscular Volume 86.8, Mean Corpuscular Hemoglobin 28.5, Mean Corpuscular Hemoglobin Concent 32.8, Mean Platelet Volume 11.0, Neutrophils (%) (Auto) 57.7, Lymphocytes (%) (Auto) 33.6, Monocytes (%) (Auto) 5.8, Eosinophils (%) (Auto) 2.2, Basophils (%) (Auto) 0.5, Neutrophils # (Auto) 4.88, Lymphocytes # (Auto) 2.84, Monocytes # (Auto) 0.49, Eosinophils # (Auto) 0.19, Basophils # (Auto) 0.04 05/26/17 16:40 Test 05/26/17 16:30 05/26/17 16:40 05/26/17 16:44 Urine Color YELLOW Urine Appearance CLEAR (CLEAR) Urine pH >= 9.0 (4.5-7.5) Urine Specific [place] 1.026 (1.000-1.030) Urine Protein NEG (NEG) Urine Glucose (UA) NEG (NEG) Urine Ketones NEG (NEG) Urine Occult Blood NEG (NEG) Urine Nitrite NEG (NEG) Urine Bilirubin NEG (NEG) Urine Urobilinogen NEG (NEG) Urine Leukocyte Esterase NEG (NEG) Urine Test NEG (NEG) White Blood Count 8.46 K/uL (4.8-10.8) Red Blood Count 4.71 M/uL (4.2-5.4) Hemoglobin 13.4 g/dL (12.0-16.0) Hematocrit 40.9 % (37-47) Mean Corpuscular Volume 86.8 fL (80-100) Mean Corpuscular Hemoglobin 28.5 pg (25-34) Mean Corpuscular Hemoglobin Concent 32.8 g/dl (32-36) Platelet Count 301 K/uL (130-400) Mean Platelet Volume 11.0 fL (7.4-10.4) Neutrophils (%) (Auto) 57.7 % Lymphocytes (%) (Auto) 33.6 % Monocytes (%) (Auto) 5.8 % Eosinophils (%) (Auto) 2.2 % Basophils (%) (Auto) 0.5 % Neutrophils # (Auto) 4.88 K/uL (1.4-6.5) Lymphocytes # (Auto) 2.84 K/uL (1.2-3.4) Monocytes # (Auto) 0.49 K/uL (0.11-0.59) Eosinophils # (Auto) 0.19 K/uL (0-0.5) Basophils # (Auto) 0.04 K/uL (0-0.2) RDW Standard Deviation 46.2 fL (36.4-46.3) RDW Coefficient of Variation 14.6 % (11.5-14.5) Immature Granulocyte % (Auto) 0.2 % Immature Granulocyte # (Auto) 0.02 K/uL (0.00-0.02) Anion Gap 5.0 mmol/L (3-11) Est Creatinine Clear Calc Drug Dose 142.6 ml/min Estimated GFR () 119.7 Estimated GFR (Non- 103.3 BUN/Creatinine Ratio 12.5 (10-20) Calcium Level 9.1 mg/dl (8.5-10.1) Total Bilirubin 0.6 mg/dl (0.2-1) Aspartate Amino Transf (AST/SGOT) 17 U/L (15-37) Alanine Aminotransferase (ALT/SGPT) 33 U/L (12-78) Alkaline Phosphatase 98 U/L (45-117) Total Protein 7.8 gm/dl (6.4-8.2) Albumin 3.8 gm/dl (3.4-5.0) Globulin 4.0 gm/dl (2.5-4.0) Albumin/Globulin Ratio 1.0 (0.9-2) Lipase 141 U/L (73-393) Bedside D-Dimer 75 ng/mlFEU (0-450) Medications Administered Medications (Trade) Dose Ordered Sig/Dixie Route Start Time Stop Time Status Last Admin Dose Admin Sodium Chloride 1,000 ml @ 999 mls/hr Q1H1M STAT IV 2/3/18 16:26 05/26/17 17:26 DC 05/26/17 16:49 999 MLS/HR Dexamethasone Sodium Phosphate (Decadron Inj) 10 mg NOW STAT IV 05/26/17 16:26 05/26/17 16:29 DC 05/26/17 16:50 10 MG Ondansetron HCl (Zofran Inj) 4 mg NOW STAT IV 05/26/17 16:26 05/26/17 16:29 DC 05/26/17 16:49 4 MG ED Course The patient was seen and evaluated as above. Her old records were reviewed, including her ED visit from a few weeks ago. She presents to the emergency department for multiple complaints including cough, head pressure and nausea and vomiting. IV lock was initiated. She was hydrated with a liter bolus of normal saline solution. She was medicated with Zofran 4 mg IV and Decadron 10 mg IV. Laboratory studies were collected including urinalysis, urine test, CBC with differential, CMP, lipase and d-dimer. Chest x-ray was obtained. Laboratory studies noted a normal white count. H&H is normal. Electrolytes, renal functions, liver functions and lipase are all within normal limits. Urine sample was completely clear. test was negative. D-dimer was 75 , well within normal limits, given this and lack of PE risk factors, was not pursued. The patient had been noted to be tachycardic and hypertensive in triage, tachycardia improved with IV hydration. Blood pressure also improved. Chest x-ray was obtained and was unremarkable. The patient has a history of asthma, which I suspect has been exacerbated by her recent upper respiratory illness. She was clinically diagnosed with influenza, and also recently treated with amoxicillin for bronchitis and sinusitis. I do not not appreciate any ongoing bacterial component, I suspect this is more inflammatory/postinfectious etiology. She was having a lot of urinary symptoms and was evaluated by her PCP had a negative urine culture and a negative CT. Urinalysis completely clear today. It was not felt that any further antibiotics were indicated. The patient had been using a Combivent inhaler as needed at home. She does report she has a nebulizer machine, also has an albuterol inhaler. She was encouraged to switch to albuterol nebulizer treatments acutely here for the next several days, then resume her regular inhalers as scheduled. She will also be placed on a short course of oral prednisone. She received IV Decadron here. She was given a small prescription for Hycodan to use as needed for nighttime cough. She was encouraged to recheck with her primary care provider this week for recheck of her current illness. She expressed understanding of this and was agreeable. The patient was discharged home in good condition. She rated her discomfort a 0/10 at discharge. Differential diagnoses entertained included ongoing viral illness including influenza, bronchitis, pneumonia, pulmonary embolus, asthma exacerbation, among others. Medical Decision See ED Course. [facility] Monitoring Program Search Results: patient reviewed within database, no issues identified Medication Reconcilliation Current Medication List: was personally reviewed by me Blood Pressure Screening Patient's blood pressure: Elevated blood pressure Blood pressure disposition: Elevated BP felt to be situational, Did not require urgent referral Impression Primary Impression: Asthmatic bronchitis with acute exacerbation Departure Information Prescriptions Hydrocodone W/ Homatropine (HYCODAN 5/1.5MG 5 ML) 1 Syp Syp 10 ML PO Q4H Y for Cough, #100 ML For Initial Treatment Prov: Merna Ruiz PA 05/26/17 Methylprednisolone (MEDROL DOSEPAK) 4 Mg [place] 0 PO DAILY, #1 PKT ONCE DAILY DIRECTED. Prov: Merna Ruiz PA 05/26/17 Albuterol Sulf (PROVENTIL 0.083% 2.5MG/3ML) 2.5 Mg/3 Ml Nebu 2.5 MG INH QID, #1 BOX Prov: Merna Ruiz PA 05/26/17 Albuterol Hfa (VENTOLIN HFA) 200 Puffs/49206 Mcg Aers 2 PUFFS INH Q4 Y for SOB/Wheezing, #1 INHALER Prov: Merna Ruiz PA 05/26/17 Referrals Emperatriz Adame M.D. (PCP) Patient Instructions My [facility] Additional Instructions Medrol Dosepak: Once daily until the prescription is finished. It is best to take this earlier in the day as some patients note occasional difficulty falling asleep when taken in the late evening. Albuterol nebulizer treatment: 1 vial via nebulizer every 4 hours while awake for the next 3-5 days, then may resume albuterol inhaler as needed. Ibuprofen(Motrin, Advil) may be used for fever or pain. Use 600mg every six hours as needed. Take with food. Avoid using more than 2400mg in a 24 hour period. Do not use 2400mg per day for more than three consecutive days without physician direction. Prolonged inappropriate use can lead to stomach upset or ulcers. This is available over the counter and typically comes in 200mg tablets. (AND/OR) Acetaminophen(Tylenol) may be used for fever or pain. Use 1000mg every eight hours as needed. Avoid using more than 3000mg in a 24 hour period. This is available over the counter. Hycodan cough syrup: use 5-10 mL's at bedtime only as needed for severe cough. It is best for use at night since it will cause sedation. This is a narcotic medication. Avoid alcohol, operating machinery or dangerous equipment, working on ladders or roofs, DRIVING, important decision making, or situations where being under the influence may be dangerous. It is recommended to use an over- the-counter stool softener such as Colace, 100mg twice daily while taking this medication to avoid constipation. Read all the package inserts or medication information paperwork provided. If you have any questions or concerns call your primary provider, pharmacist or the ER for assistance. Rest and drink plenty of fluids. Avoid strenuous activity until your symptoms resolve and your breathing returns to normal. Continue current medications. Return to the ER for chest pain, difficulty breathing, persistent fevers, vomiting, worsening of your condition, or as needed. Follow-up with your primary care physician this week for recheck.
[2017-05-26 18:19] VITALS: BP 149/101; PULSE 89; O2SAT 100
[2017-05-26] MEDS ORDERED: [UNRECOGNIZED DRUG - CODE] TOP (19:06)
[2017-05-26] MEDS ORDERED: ATR25 PO (19:06)
[2017-05-26] MEDS ORDERED: ABL/15 PO (19:06)
[2017-05-26] MEDS ORDERED: DOXE100C4 PO (19:06)
[2017-05-26] MEDS ORDERED: ETON1IMP2 (19:06)
[2017-05-26] MEDS ORDERED: SALI0.658 NAE (19:06)
[2017-05-26] MEDS ORDERED: DIPH25CA94 PO (19:06)
[2017-05-26] MEDS ORDERED: SERT-234 PO (19:06)
[2017-05-26] MEDS ORDERED: FLUT50SP45 (19:06)
[2017-05-26] MEDS ORDERED: ONDA8TAB6 PO (19:06)
[2017-05-26] MEDS ORDERED: [UNRECOGNIZED DRUG - CODE] PO (19:06)
[2017-05-26] MEDS ORDERED: RIZA10TA18 PO (19:06)
== END 2017-05-26 18:19 | disposition home or self-care (01) ==
LOC: C.EDB 15:48 → C.EDC 18:19
DX: J45.901 Unspecified asthma with (acute) exacerbation (principal); I10 Essential (primary) hypertension; K21.9 Gastro-esophageal reflux disease without esophagitis; F41.9 Anxiety disorder, unspecified; F32.9 Major depressive disorder, single episode, unspecified; E66.01 Morbid (severe) obesity due to excess calories; Z87.440 Personal history of urinary (tract) infections; Z83.3 Family history of diabetes mellitus; Z82.49 Family history of ischemic heart disease and other diseases of the circulatory system; Z82.0 Family history of epilepsy and other diseases of the nervous system; Z79.899 Other long term (current) drug therapy

== ENCOUNTER → 2017-06-04 | Outpatient (CLI) | payer OTHER ==
[~2017-06-04] MED LIST changes: +ABL/15 PO; +ALBINS/ INH; -AMOX500C3 PO; +ATR25 PO; +CETI10TA10 PO; +DIPH25CA94 PO; +DOXE100C4 PO; +ETON1IMP2; +FLUT50SP45; +HYDR5SYP11 PO; +IPRA1AER2 INH; +METH4PAK PO; +MOME200A INH; +ONDA8TAB6 PO; -OSEL75CA23 PO; +PANT40TA2 PO; +RIZA10TA18 PO; +SALI0.658 NAE; +SERT-234 PO; +SNG10 PO; +VNTHFA/IN INH; +[UNRECOGNIZED DRUG - CODE] PO; +[UNRECOGNIZED DRUG - CODE] TOP
[2017-06-04 18:23] LABS: BLOOD UREA NITROGEN 9 mg/dl (7-18); CALCIUM 8.7 mg/dl (8.5-10.1); CARBON DIOXIDE 28 mmol/L (21-32); CREATININE 0.86 mg/dl (0.60-1.20); GLUCOSE 69 mg/dl (70-99); POTASSIUM 4.1 mmol/L (3.5-5.1); SODIUM 138 mmol/L (136-145)
== END | disposition home or self-care (01) ==
LOC: C.LABMFLN 15:38
PROVIDERS: ATTEND Family Medicine
DX: J01.90 Acute sinusitis, unspecified (principal); J40 Bronchitis, not specified as acute or chronic

== ENCOUNTER → 2017-08-10 | Outpatient (CLI) | payer OTHER ==
[~2017-08-10] MED LIST changes: -HYDR5SYP11 PO; -METH4PAK PO; +ONDA-170 PO; -ONDA8TAB6 PO
[2017-08-10 13:30] LABS: HEMOGLOBIN A1C 5.4 % (4.5-5.6)
== END ==
LOC: C.LABMFLN 08:17
PROVIDERS: ATTEND Family Medicine
DX: E78.5 Hyperlipidemia, unspecified (principal); Z13.1 Encounter for screening for diabetes mellitus